=== PATIENT | male | born 1960 | race Caucasian/White ===

== ENCOUNTER 2019-03-28 14:01 | Emergency (ER) | payer SELFPAY ==
[~2019-03-28] VITALS: Ht 162.6 cm; Wt 72.0 kg
[~2019-03-28 14:01] MED LIST: BACTRIM DS1 TAB PO; BACTROBAN 2% NAS OIN TOP; NAPROSYN500 MG PO
[2019-03-28 15:18] VITALS: BP 135/87
== END 2019-03-28 15:18 | DRG 605 ==
LOC: ED 14:01
DX: S61.412A Laceration without foreign body of left hand, initial encounter (principal); S66.922A Laceration of unspecified muscle, fascia and tendon at wrist and hand level, left hand, initial encounter; W45.8XXA Other foreign body or object entering through skin, initial encounter; W29.8XXA Contact with other powered hand tools and household machinery, initial encounter; Y93.H9 Activity, other involving exterior property and land maintenance, building and construction; Y92.009 Unspecified place in unspecified non-institutional (private) residence as the place of occurrence of the external cause